=== PATIENT | male | born 1970 | race Caucasian/White ===

== ENCOUNTER 2020-10-27 12:22 | Emergency (ER) | payer BC ==
[~2020-10-27] VITALS: Ht 167.6 cm; Wt 90.7 kg
[2020-10-27] MEDS ORDERED: PRINIVIL10 MG PO (12:53)
[2020-10-27] MEDS ORDERED: BYSTOLIC 5 MG5 MG PO (12:54)
[2020-10-27] MEDS ORDERED: CATAPRES0.2 M1 PO (12:54)
[2020-10-27] MEDS ORDERED: MOBIC7.5 MG PO (12:55)
[2020-10-27] MEDS ORDERED: ALPRAZOLAM2 M1 PO (12:55)
[2020-10-27] MEDS ORDERED: FLEXERIL PO (12:56)
[2020-10-27] MEDS ORDERED: BRINTELLIX10 MG PO (12:56)
[2020-10-27] MEDS ORDERED: BUTALB-APAP-CA1 EACH PO (14:11)
[2020-10-27 14:45] VITALS: BP 132/81
== END 2020-10-27 14:46 | disposition home or self-care (01) ==
LOC: M.ERS 12:22
DX: G43.909 Migraine, unspecified, not intractable, without status migrainosus (principal); R11.2 Nausea with vomiting, unspecified; Z88.8 Allergy status to other drugs, medicaments and biological substances; Z79.899 Other long term (current) drug therapy